=== PATIENT | female | born 1990 | race African-American/Black ===

== ENCOUNTER 2018-03-12 12:28 | Emergency (ER) | payer MEDICAID, OTHER ==
[2018-03-12] MEDS: HYDROCODONE/APAP (5/325) TAB PO (14:16)
== END 2018-03-12 15:53 | disposition home or self-care (01) ==
LOC: FTE 12:28
DX: M54.2 Cervicalgia (principal); M54.5 Low back pain; M54.6 Pain in thoracic spine
CPT/HCPCS: 72040; 72072; 72100; 81025; 99283-25